=== PATIENT | female | born 1940 | race Caucasian/White ===

== ENCOUNTER 2017-04-15 10:19 | Outpatient (CLI) | payer OTHER ==
[2014-07-28 08:22] VITALS: BP 132/64
[2017-04-15 11:14] LABS: BASOPHILS % 0.8 (0.0-1.5); MEAN CORPUSCULAR HEMOGLOBIN 31.5 pg (28.0-34.0); MEAN CORPUSCULAR VOLUME 92.8 fl (80.0-100.0); MONOCYTES % 7.6 % (0.0-11.0); NEUTROPHILS # 4.9 # k/uL (1.4-7.7)
[2017-04-15 11:18] LABS: eGFR (African) > 60; eGFR (Non-African) > 60
== END 2017-04-15 10:20 ==
LOC: LAB 10:19
PROVIDERS: ATTEND Family Medicine
DX: M06.9 Rheumatoid arthritis, unspecified (principal); K59.00 Constipation, unspecified
CPT/HCPCS: 36415; 80053; 84443; 85025

== ENCOUNTER 2017-12-02 14:43 | Emergency (ER) | payer OTHER ==
--- NOTE | 2017-12-02 15:12 | ED Physician Documentation ---
Dyspnea - HISTORIAN Historian: patient - HPI Stated Complaint: short of breath Chief Complaint: Dyspnea Onset: days ago (10-14) Duration: continues in ED, worse Severity: severe Exacerbated By: change in position, exertion, laying flat Further Comments: yes (77 year old female patient sent over from Dr Bojorquez' s office with room air sat of 82%. Patient reports intermittent SOB for the past 10-14 days, states she woke up this morning with worsening SOB. Denies CP, fever, c/o cough.) - ROS CONST: no problems EYES/ENT: none GI/: none NEURO/PSYCH: denies: headache MS/SKIN/LYMPH: none - PAST HX Lung Disease: none Cardiac Disease: other (HTN) Surgeries/Procedures: cholecystectomy, hysterectomy Other History: other (GERD, RA, jyoti-CA) Allergies/Adverse Reactions: Allergies Allergy/AdvReac Type Severity Reaction Status Date / Time No Known Drug Allergies Allergy Verified 12/02/17 14:54 - SOCIAL HX Smoking History: non-smoker - FAMILY HX Family History: denies: none - VITAL SIGNS Vital Signs: Vital Signs Temp Pulse Resp BP Pulse Ox 97.8 F 102 H 18 149/101 95 12/02/17 14:45 12/02/17 14:46 12/02/17 14:45 12/02/17 14:45 12/02/17 14:46 - REVIEWED ASSESSMENTS Nursing Assessment Reviewed: Yes Vitals Reviewed: Yes Progress - Progress Progress: [address] results. Will progress with CT abd; non-contrasted as patient has received contrast today. Reviewed CT results with patient and . Patient states that she has noticed fluid in her ankles for the past 2 weeks; states she cannot get some of her pants buttoned, she has noticed her clothes fitting differently in the past 2 weeks. 1999 Reviewed Abd - CT results with patient and . Recommended transfer for oncology consult. Patient prefers [facility]. 2014 Call to [facility] - patient accepted by Dr Perry. - EKG/XRAY/CT EKG: rhythm (ST, artifact; Rate 109) ED Results Lab/Radiology - Radiology Radiology Impressions: HISTORY: 77-year-old female with cough, hypoxia. COMPARISON: None available. TECHNIQUE: Single portable AP view of the chest was performed. FINDINGS: Lung volumes are low. No pneumothorax, consolidative infiltrates, or pulmonary edema. The heart is not enlarged. IMPRESSION: 1. No acute cardiopulmonary process identified. 2. Low lung volumes. Electronically signed on December 02, 2017 3:13:28 PM CDT by: Marco Goldberg CT chest PE protocol History: ELEVATED D DIMER; HYPOXIA; DYSPNEA No comparison studies Emphysema. Motion artifact limits the study Minimal pleural thickening, left basilar atelectasis. Hiatal hernia There is a small right thyroid lobe nodule. 4 vessel aortic arch No obvious PE. Limited views of upper abdomen demonstrate hepatic steatosis. Large amount of abdominal ascites is present. A 1.4 cm hypodense inferior hepatic lobe lesion is seen on series 4 image 115, right renal cortical atrophy. Kidneys are incompletely imaged. Multilevel thoracic spine degenerative changes are present. Compression deformity of T4 and T5 vertebral bodies Impression: 1. Study limited by motion artifact. Within this limitation, no obvious PE. 2. Emphysema. Minimal pleural thickening. Bibasilar atelectasis. 3. Moderate to large hiatal hernia. Large amount of abdominal ascites. Right renal cortical atrophy. Small inferior hepatic lesion is incompletely imaged. 4. Multilevel thoracolumbar spondylosis 5. Mediastinal lymphadenopathy CT Abdomen/pelvis without contrast History: ASCITES; HEPATIC LESION SEEN ON PE EXAM No comparison studies Emphysema. Bibasilar atelectasis. No free intraperitoneal air. Extensive multilevel thoracic spine thoracolumbar spine degenerative changes. Coronary calcification. Large volume intraabdominal ascites. Lack of contrast limits evaluation. Artifacts are present. Previously described hepatic hypodense lesion faintly identified on series 5 image 32, difficult to characterize. Post cholecystectomy. Spleen, adrenal glands appear to be within normal limits pancreas is atrophic. A moderate to large hiatal hernia. Proximal abdominal aorta measures 3.5 cm and slightly aneurysmal. Extensive atherosclerotic calcification of the aorta and its branches. Urinary bladder is decompressed. No obvious bowel obstruction A complex indeterminate large septated mass is noted in the pelvis measuring approximately 14.5 x 14.7 x 15.8 cm Impression: 1. Large complex indeterminate septated mass is seen the in the pelvis measuring approximately 14.5 x 14.7 x 15.8 cm, several loculated thickwalled components are present, malignancy is a consideration, is unclear if this representsovarian carcinoma versus multiple loculated abscesses. MRI may be considered. 2. Hepatic lesion is poorly seen on this noncontrast examination and difficult to characterize. Proximal abdominal aortic aneurysm measuring 3.5 cm. 3. Emphysema and bibasilar atelectasis. Large volume abdominal ascites. Moderate to large hiatal hernia. Electronically signed on December 02, 2017 7:51:15 PM CDT by: Maida Bess Dense calcification is seen in the midline pelvis Critical findings were discussed by Dr. Bess with SURVEY CREW CHIEF Ms. Verma on at approx. 8:20 pm TELEX OPERATOR Addendum electronically signed by Maida Bess on December 02, 2017 8:20:38 PM CDT - Orders Orders: ED Orders Category Date Time Status Continuous EKG monitoring Q30M Care 12/02/17 14:46 Active Continuous Pulse Oximetry Q30M Care 12/02/17 14:[address] IV Lock 1T Care 12/02/17 14:46 Active CHEST 1VIEW [RAD] Stat Exams 12/02/17 14:46 Taken CBC/PLATELET/DIFF Stat Lab 12/02/17 14:46 Ordered CKMB Stat Lab 12/02/17 14:46 Ordered CMP Stat Lab 12/02/17 14:46 Ordered CREATINE KINASE Stat Lab 12/02/17 14:46 Ordered UA W/MICRO IF INDICATED Stat Lab 12/02/17 14:46 Ordered Oxygen Daily Oxygen 12/02/17 15:00 Ordered EKG WITH COMPARISON Stat Ther 12/02/17 14:46 Ordered Dyspnea Physical Exam - EXAM General Appearance: mild distress EENT: eye inspection normal, ENT inspection normal, pharynx normal, no signs of dehydration, CONCEPCION, no nystagmus, TM's nml Respiratory: no resp. distress, breath sounds nml, no pain on inspiration, other (Dyspnea; RA Sat 86-87%) CVS: reg. rate & rhythm, no murmur, no gallop, no friction rub, pulses full, pulses equal Abdomen: non-tender, no organomegaly, other (protuberant; distended; BM today - "small amount") Skin: color nml, no rash, warm, nml palp., dry Extremities: non-tender, normal range of motion, no evidence of injury, no edema , J, SURVEY CREW CHIEF Neuro/Psych: oriented x3, CN's nml as tested, motor nml, sensation nml, mood/ affect nml Discharge Clincal Impression: Pelvic mass in female, Hepatic lesion, Ascites of liver, Hiatal hernia, Hypoxemia requiring supplemental oxygen, Dyspnea on exertion Condition: Fair Disposition: 02 XFER [facility] HOSP Decision to Admit: NO Decision Time: 20:29
[2017-12-02 15:24] LABS: BASOPHILS % 0.5 (0.0-1.5); EOSINOPHILS % 1.7 % (0.0-6.8); MEAN CORPUSCULAR HEMOGLOBIN 31.1 pg (28.0-34.0); MEAN CORPUSCULAR VOLUME 95.8 fl (80.0-100.0); MONOCYTES % 2.1 % (0.0-11.0); NEUTROPHILS # 6.6 # k/uL (1.4-7.7)
[2017-12-02 15:36] LABS: eGFR (African) > 60; eGFR (Non-African) > 60
--- NOTE | 2017-12-02 18:06 | Diagnostic Imaging Report ---
THALIA CONTRERAS (IP LITIGATION ASSOCIATE) - ER [facility] [address] [facility] [address] Report Submission Date: December 02, 2017 3:13:28 PM CDT Patient Study Name: UBALDO WADDELL Date: December 02, 2017 2:52:45 PM CDT Modality Type: DX Gender: F Description: CHEST : 38 Institution: [facility] Physician: THALIA CONTRERAS (DAVID) - ER HISTORY: 77-year-old female with cough, hypoxia. COMPARISON: None available. TECHNIQUE: Single portable AP view of the chest was performed. FINDINGS: Lung volumes are low. No pneumothorax, consolidative infiltrates, or pulmonary edema. The heart is not enlarged. IMPRESSION: 1. No acute cardiopulmonary process identified. 2. Low lung volumes. Electronically signed on December 02, 2017 3:13:28 PM CDT by: Marco AQUINO
--- NOTE | 2017-12-02 18:22 | Diagnostic Imaging Report ---
THALIA CONTRERAS (SURG PHYSICIAN ASST) - ER [facility] [address] [facility] [address], [place]. [address] Report Submission Date: December 02, 2017 6:19:57 PM CDT Patient Study Name: UBALDO WADDELL Date: December 02, 2017 5:41:55 PM CDT Modality Type: CT\SR Gender: F Description: CT PE CHEST : 38 Institution: [facility] Physician: THALIA CONTRERAS (SURG PHYSICIAN ASST) - ER CT chest PE protocol History: ELEVATED D DIMER; HYPOXIA; DYSPNEA No comparison studies Emphysema. Motion artifact limits the study Minimal pleural thickening, left basilar atelectasis. Hiatal hernia There is a small right thyroid lobe nodule. 4 vessel aortic arch No obvious PE. Limited views of upper abdomen demonstrate hepatic steatosis. Large amount of abdominal ascites is present. A 1.4 cm hypodense inferior hepatic lobe lesion is seen on series 4 image 115, right renal cortical atrophy. Kidneys are incompletely imaged. Multilevel thoracic spine degenerative changes are present. Compression deformity of T4 and T5 vertebral bodies Impression: 1. Study limited by motion artifact. Within this limitation, no obvious PE. 2. Emphysema. Minimal pleural thickening. Bibasilar atelectasis. 3. Moderate to large hiatal hernia. Large amount of abdominal ascites. Right renal cortical atrophy. Small inferior hepatic lesion is incompletely imaged. 4. Multilevel thoracolumbar spondylosis 5. Mediastinal lymphadenopathy Electronically signed on December 02, 2017 6:19:57 PM CDT by: Maida AQUINO
[2017-12-02] MEDS: 0.9 % SODIUM CHLORIDE 1,000 ML IV ONE (19:00)
[2017-12-02 20:47] VITALS: BP 140/76
--- NOTE | 2017-12-03 06:50 | Diagnostic Imaging Report ---
THALIA CONTRERAS (SET PAINTER) - ER [facility] [address] [facility] [address] [place], [place]. [address] Report Submission Date: December 02, 2017 7:51:15 PM CDT Patient Study Name: UBALDO WADDELL Date: December 02, 2017 6:39:45 PM CDT Modality Type: CT\SR Gender: F Description: CT ABD PELVIS W/O CO : 38 Institution: [facility] Physician: THALIA CONTRERAS (SET PAINTER) - ER CT Abdomen/pelvis without contrast History: ASCITES; HEPATIC LESION SEEN ON PE EXAM No comparison studies Emphysema. Bibasilar atelectasis. No free intraperitoneal air. Extensive multilevel thoracic spine thoracolumbar spine degenerative changes. Coronary calcification. Large volume intraabdominal ascites. Lack of contrast limits evaluation. Artifacts are present. Previously described hepatic hypodense lesion faintly identified on series 5 image 32, difficult to characterize. Post cholecystectomy. Spleen, adrenal glands appear to be within normal limits pancreas is atrophic. A moderate to large hiatal hernia. Proximal abdominal aorta measures 3.5 cm and slightly aneurysmal. Extensive atherosclerotic calcification of the aorta and its branches. Urinary bladder is decompressed. No obvious bowel obstruction A complex indeterminate large septated mass is noted in the pelvis measuring approximately 14.5 x 14.7 x 15.8 cm Impression: 1. Large complex indeterminate septated mass is seen the in the pelvis measuring approximately 14.5 x 14.7 x 15.8 cm, several loculated thickwalled components are present, malignancy is a consideration, is unclear if this representsovarian carcinoma versus multiple loculated abscesses. MRI may be considered. 2. Hepatic lesion is poorly seen on this noncontrast examination and difficult to characterize. Proximal abdominal aortic aneurysm measuring 3.5 cm. 3. Emphysema and bibasilar atelectasis. Large volume abdominal ascites. Moderate to large hiatal hernia. Electronically signed on December 02, 2017 7:51:15 PM CDT by: Maida Bess Dense calcification is seen in the midline pelvis Critical findings were discussed by Dr. Bess with SET PAINTER Ms. Contreras on at approx. 8:20 pm VISUAL TRAINING AIDE Addendum electronically signed by Maida Bess on December 02, 2017 8:20:38 PM CDT MTDD
== END 2017-12-02 20:46 | disposition short-term general hospital (02) ==
LOC: ED 14:43
DX: R19.09 Other intra-abdominal and pelvic swelling, mass and lump (principal); R18.8 Other ascites; K76.9 Liver disease, unspecified; K44.9 Diaphragmatic hernia without obstruction or gangrene; R09.02 Hypoxemia; R06.09 Other forms of dyspnea
CPT/HCPCS: 71045; 71275; 74176; 80053; 82550; 82553; 83880; 85025; 85379; 85610; 85730; 93005; J7030; 99284; S1016